=== PATIENT | male | born 1950 | race Caucasian/White ===

== ENCOUNTER 2020-08-01 06:34 | Emergency (ER) | payer MEDICARE ==
[~2020-08-01] VITALS: Ht 180.3 cm; Wt 61.2 kg
[~2020-08-01 06:34] MED LIST: ? BP MED; AMOCLA875 PO; CLIN150 PO; FLUO10; HYDACE5 PO; LISI5; LOSHYD PO; Restoril15 MG PO; [UNRECOGNIZED DRUG - REMARK]
[2020-08-01] MEDS ORDERED: Norco 10-325 T1 EACH PO (07:10)
[2020-08-01] MEDS ORDERED: DOCU100 PO (07:25)
[2020-08-26] MEDS ORDERED: HYDCHL50 PO (14:50)
[2020-08-26] MEDS ORDERED: HYDMOR4 PO (14:53)
[2020-08-26] MEDS ORDERED: ALBU90OI INH (15:01)
[2020-08-26] MEDS ORDERED: ZESTRIL40 M1 PO (15:01)
[2020-08-26] MEDS ORDERED: Prozac40 MG PO (15:01)
== END 2020-08-01 07:28 | disposition home or self-care (01) ==
LOC: ER 06:34
DX: K40.90 Unilateral inguinal hernia, without obstruction or gangrene, not specified as recurrent (principal); K59.00 Constipation, unspecified; I10 Essential (primary) hypertension; Z87.891 Personal history of nicotine dependence; Z79.899 Other long term (current) drug therapy
CPT/HCPCS: 99283